=== PATIENT | female | born 1960 | race Caucasian/White ===

== ENCOUNTER 2019-12-16 17:02 | Emergency (ER) | payer OTHER ==
[~2019-12-16] VITALS: Ht 167.6 cm; Wt 65.8 kg
--- NOTE | ~2019-12-16 | EKG ---
[place] [address] ELECTROCARDIOGRAM REPORT Name: YUMI CRUMP Room: [place] [address] ADM IN .R.#: [id number] Admission: 12/16/19 Attend Phys: Wing Ray Discharge: Date of : 60 Date of Service: 12/16/19 1723 Report #: [id number] THIS REPORT FOR: cc: Irving Montiel Bradley L. 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
[2019-12-16 17:02] VITALS: BP 121/68
[2019-12-16] MEDS ORDERED: FLEXERIL PO (17:19)
[2019-12-16] MEDS ORDERED: TRAZODONE HCL100 MG PO (17:21)
[2019-12-16] MEDS ORDERED: XANAX 0.5 MG0.5 M1 PO (17:21)
[2019-12-16 17:55] LABS: HEMOGLOBIN 14.7 gm/dL (12.0-15.0); MCH 27.8 pg (26.0-34.0); MCHC 33.4 g/dL (28.0-37.0); MCV 83.3 fL (80.0-100.0); MPV 8.5 fl. (7.2-11.1); NUCLEATED RBCS 0 /100WBC; PLATELET COUNT* 217 thou/uL (150-400); RBC 5.29 mil/uL (4.20-5.00); RDW-CV 14.6 % (10.5-14.5); WBC 12.9 thou/uL (4.0-11.0)
[2019-12-16 18:06] LABS: CALCIUM 8.9 mg/dL (8.5-10.1); CREATININE 1.2 mg/dL (0.6-1.3); POTASSIUM 4.3 mmol/L (3.5-5.1)
[2019-12-16 18:18] LABS: SALICYLATE < 2.8 mg/dL (2.8-20.0)
[2019-12-16 18:19] LABS: ACETAMINOPHEN < 2 ug/mL (10-30); ALCOHOL < 10 mg/dL (<10)
[2019-12-16 18:20] LABS: MAGNESIUM 1.9 mg/dL (1.8-2.4); TOTAL BILIRUBIN 0.7 mg/dL (<0.1-1.0); TOTAL PROTEIN 7.9 g/dL (6.4-8.2)
[2019-12-16 18:21] LABS: ABSOLUTE LYMPHOCYTES 1.4 thou/uL (0.8-5.3); ABSOLUTE MONOCYTES 0.3 thou/uL (0.0-1.2); ABSOLUTE NEUTROPHILS 11.2 thou/uL (1.6-8.1); ATYPICAL LYMPHS 6 %; PLATELET ESTIMATE ADEQUATE
[2019-12-16 18:43] LABS: URINE BILIRUBIN NEGATIVE (Negative); URINE BLOOD 3+ (Negative); URINE CLARITY CLEAR; URINE COLOR YELLOW; URINE GLUCOSE-RANDOM NEGATIVE (Negative); URINE KETONES NEGATIVE (Negative); URINE LEUKOCYTES-REFLEX NEGATIVE (Negative); URINE NITRITE-REFLEX NEGATIVE (Negative); URINE PROTEIN NEGATIVE (Negative); URINE SPECIFIC GRAVITY 1.025 (1.005-1.030); URINE UROBILINOGEN 0.2 E.U./dl (0.2-1.0)
[2019-12-16 18:49] LABS: BACTERIA-REFLEX None Seen /HPF (None Seen); CRYSTALS None Seen /LPF (None Seen); HYALINE CASTS 0-3 Few /LPF (None Seen); MUCUS 0-3 Light strn/LPF (None Seen); SQUAMOUS 0-3 Few /LPF (0-3); URINE RBC 0-2 Rare /HPF (0-2); URINE WBC-REFLEX None Seen /HPF (0-5)
[2019-12-16 18:51] LABS: AMP/METHAMP Negative (Negative); BARBITURATES Negative (Negative); BENZODIAZEPINES POSITIVE (Negative); COCAINE Negative (Negative); METHADONE Negative (Negative); OPIATES Negative (Negative); PCP Negative (Negative); THC Negative (Negative)
[2019-12-16 23:30] VITALS: BP 134/68
== END 2019-12-16 23:30 | disposition short-term general hospital (02) | DRG 918 ==
LOC: M.ERS 17:02 → M.TBA-ER 19:05 → M.ERS 23:30 → M.TBA-ER 23:30
PROVIDERS: Emergency Medicine Emergency Medical Services
DX: T43.212A Poisoning by selective serotonin and norepinephrine reuptake inhibitors, intentional self-harm, initial encounter (principal); M62.82 Rhabdomyolysis; K92.2 Gastrointestinal hemorrhage, unspecified; F41.9 Anxiety disorder, unspecified; Z88.6 Allergy status to analgesic agent; Z88.0 Allergy status to penicillin; Y92.89 Other specified places as the place of occurrence of the external cause; Z79.899 Other long term (current) drug therapy